=== PATIENT | female | born 1965 | race Caucasian/White ===

== ENCOUNTER 2016-11-15 20:18 | Emergency (ER) | payer MEDICAID ==
[~2016-11-15] VITALS: Ht 154.9 cm; Wt 135.2 kg
[2016-11-15 22:00] VITALS: BP 135/79
--- NOTE | 2016-11-15 22:15 | PHYS DOC ---
General Chief Complaint: SKIN RASH/ABSCESS Stated Complaint: RASH, LEFT KNEE SWOLLEN Time Seen by MD: 21:43 Source: patient Exam Limitations: no limitations Problems: History of Present Illness Initial Comments Patient is a 51-year-old female who comes to the ED complaining of left knee pain and skin rash. Skin rash: Patient states that for the past week or so she's had an itchy burning rash under her breasts. The rash and the discomfort from the rash automated impossible for the patient to wear a bra off due to discomfort. At times she gets a whitish covering on the rash she denies any other associated symptoms. No fever chills sweats or myalgias. She denies diabetes but admits to glucose intolerance history. She denies immunocompromise or recent antibiotics but states she did just finish a course of prednisone for angioedema. This is the likely cause of her candidal rash. Left knee pain and swelling: Patient has been previously diagnosed with osteoarthritis of the left knee. She states that recently her pain and swelling have worsened. At time she feels as if the knee is unstable and will give out. She denies any trauma she denies pain with passive range of motion. She has seen her primary care for this in the past and plain films revealed osteoarthritis. She has not seen a specialist she has not had an MRI. Timing/Duration: 1 week Severity: moderate Modifying Factors: improves with cold therapy, worse with movement, improves with rest Associated Symptoms: rash, other Allergies: Coded Allergies: Sulfa (Sulfonamide Antibiotics) (Verified Allergy, Unknown, 11/15/16) amlodipine (Verified Allergy, Unknown, 11/15/16) lisinopril (Verified Allergy, Unknown, 11/15/16) Past Medical History Medical History: other (angioedema, hypertension, coronary artery disease,) Surgical History: angioplasty Social History Smoker: cigarettes Alcohol: none Drugs: none Review of Systems Constitutional: denies chills, denies fever, denies malaise Respiratory: denies cough, denies shortness of breath Cardiovascular: denies chest pain, denies palpitations Gastrointestinal: denies diarrhea, denies nausea, denies vomiting Genitourinary: denies dysuria, denies frequency, denies hematuria Musculoskeletal: see HPI, denies back pain, denies neck pain Skin: see HPI Psychiatric/Neurological: denies headache, denies numbness, denies paresthesia Physical Exam General Appearance: no apparent distress, obese Ear, Nose, Throat: hearing grossly normal, normal ENT inspection Neck: non-tender, supple Respiratory: normal breath sounds, no respiratory distress Gastrointestinal: non tender, soft Back: no CVA tenderness, no vertebral tenderness Extremities: no calf tenderness, pelvis stable, other (moderate left knee effusion with warmth no palpable deformity or bony tenderness. 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 She expressed agreement and understanding Departure Time of Disposition: 22:13 Disposition: 01 HOME, SELF-CARE Diagnosis: steroid-induced candidiasis, osteoarthritis left k Condition: GOOD Patient Instructions: Eunice Infection, Adult, Osteoarthritis, RICE - Routine Care for Injuries, [id number] Additional Instructions: RICE, see handout. Wear AIDAN wrap as needed. Continue current meds. Keep rash area dry. Rx: diflucan, nystatin/TCA Follow-up with your doctor next week for recheck and further evaluation and treatment of left knee osteoarthritis. Return to the ED with new or changing symptoms. ALEX SOLER DO Nov 15, 2016 22:15
[2016-11-15] MEDS ORDERED: NYSTATIN 100,000 UNIT/GM TOPICAL CREAM 15GM TUBE. TP ONE (22:30)
[2016-11-15] MEDS ORDERED: FLUCONAZOLE 100 MG TABLET. PO ONE (22:30)
== END 2016-11-15 22:38 | disposition home or self-care (01) ==
LOC: ER 20:18
DX: M17.12 Unilateral primary osteoarthritis, left knee (principal); B37.9 Candidiasis, unspecified; I25.10 Atherosclerotic heart disease of native coronary artery without angina pectoris; I10 Essential (primary) hypertension; F17.210 Nicotine dependence, cigarettes, uncomplicated; Z88.2 Allergy status to sulfonamides; Z88.8 Allergy status to other drugs, medicaments and biological substances
CPT/HCPCS: 99283